=== PATIENT | male | born 1980 | race Hispanic/Latino ===

== ENCOUNTER 2018-04-17 22:53 | Emergency (ER) | payer OTHER ==
[~2018-04-17] VITALS: Ht 172.7 cm; Wt 89.4 kg
[2018-04-17] MEDS ORDERED: DICYCLOMINE HCL 20 MG TAB PO ONE (23:00)
[2018-04-17] MEDS ORDERED: PANTOPRAZOLE 40 MG 10ML VIAL IV ONE (23:00)
[2018-04-17] MEDS ORDERED: FAMOTIDINE 20 MG/2 ML VIAL IV ONE (23:00)
[2018-04-17] MEDS ORDERED: AMITRIPTYLINE H10 MG PO (23:55)
[2018-04-18] MEDS ORDERED: DONNATAL/LIDOCAINE/MAALOX 30 ML SUSP PO ONE
--- NOTE | 2018-04-18 00:10 | Diagnostic Imaging Report ---
EXAM: ABDOMEN-2VIEW DATE: 04/17/2018 12:00 AM Time stamp on exam: 2346 hours INDICATION: Left upper quadrant and epigastric pain since Wednesday COMPARISON: None FINDINGS: LINES/TUBES: None BOWEL PATTERN: No evidence for obstruction. SOFT TISSUES: No abnormal calcifications. No mass effect. LUNG BASES: Not included BONES: No acute findings. IMPRESSION: Nonobstructive bowel gas pattern. Signed by: Dr. Cabrera Wilson M.D. on 04/18/2018 12:06 AM
== END 2018-04-18 00:39 | disposition home or self-care (01) ==
LOC: FSED 22:53
DX: R10.13 Epigastric pain (principal); K58.0 Irritable bowel syndrome with diarrhea; E11.9 Type 2 diabetes mellitus without complications; E78.5 Hyperlipidemia, unspecified; Z87.19 Personal history of other diseases of the digestive system
CPT/HCPCS: 74019; 80048; 80076; 80307; 81003; 85025; 99283